=== PATIENT | female | born 1980 | race Caucasian/White ===

== ENCOUNTER → 2024-10-18 08:16 | Outpatient (REF) | payer BC, SELFPAY | LOC: HWRAD 08:16 | PROVIDERS: ATTENDING PHYSICIAN Obstetrics & Gynecology; FAMILY PHYSICIAN Family Medicine | DX: N81.2 Incomplete uterovaginal prolapse (principal) | CPT/HCPCS: 76830; 76856 ==

== ENCOUNTER 2024-12-25 06:26 | Day surgery (SDC) | payer BC, SELFPAY ==
[2024-12-19 09:20] LABS: Hematocrit 41.7 % (37.0-47.0); Hemoglobin 13.5 g/dL (12.0-16.0); Mean Corp Hgb Conc. 32.4 g/dL (33.0-37.0); Mean Corpuscular Volume 89.3 fL (81.0-99.0); Platelet Count 232 10^3/uL (130-400); Red Cell Dist. Width 14.1 % (11.5-14.5)
[2024-12-19 10:15] LABS: Blood Urea Nitrogen 12 mg/dl (7-17); Calcium 9.1 mg/dl (8.4-10.2); Carbon Dioxide 22 mmol/L (22-30); Chloride 110 mmol/L (98-107); Glucose 100 mg/dl (70-99); Potassium 4.1 mmol/L (3.5-5.1); Sodium 140 mmol/L (135-145); eGFR > 60.00
[2024-12-19 13:36] VITALS: BMI 20.9
[2024-12-25] VITALS (10 sets, daily range): BP systolic 94–114; BP diastolic 59–77; BMI 20.9
[2024-12-25] MEDS: TRANSDERM-SCOP 1 PATCH TRANSDERM (09:08)
[2024-12-25] MEDS: NORMOSOL-R/PLASMALYTE-A 1000 IV (09:09)
[2024-12-25] MEDS: DILAUDID 0.5 MG IV (14:06)
[2024-12-25] MEDS: ZOFRAN 4 MG IV (14:06)
[2024-12-25] MEDS: TYLENOL 650 MG PO (15:24)
[2024-12-25] MEDS: MOTRIN 600 MG PO (16:48)
[2024-12-25] MEDS: ROXICODONE 5 MG PO (18:11)
== END 2024-12-25 18:15 | disposition home or self-care (01) ==
LOC: SDS 06:26
PROVIDERS: ATTENDING PHYSICIAN Obstetrics & Gynecology; FAMILY PHYSICIAN Family Medicine
DX: N81.2 Incomplete uterovaginal prolapse (principal); N39.3 Stress incontinence (female) (male); N72 Inflammatory disease of cervix uteri
CPT/HCPCS: 57425; 58571; 57250; 36415; 80048; 85027; 86850; 86900; 86901; 88305; 93005; C1763